=== PATIENT | male | born 1950 | race Caucasian/White ===

== ENCOUNTER → 2021-12-12 | Day surgery (SDC) | payer MEDICARE, OTHER ==
[~2021-12-12] VITALS: Ht 185.4 cm; Wt 77.1 kg
[~2021-12-12] MED LIST: ALOGLIPTIN25 MG PO; AMARYL 2MG TABLE2 MG PO; CARBIDOPA-LEVO1 EAC1 PO; COZAAR100 MG PO; DAILY VALUE1 EACH PO; LIPITOR40 MG PO; LOVAZA1 GM PO; MAG-OXIDE 400M400 MG PO; METFORMIN HCL500 MG PO; NORVASC5 MG PO; ROBINUL FORTE 2M2 MG PO; VITAMIN B-12 IJ; VITAMIN D3125 MC1 PO
[2021-12-12 10:47] LABS: HCT 39.8 % (42.0-52.0); HGB 13.9 g/dl (13.2-18.0); MCH 34.8 pg (25.0-31.0); MCHC 34.9 g/dL (32.0-36.0); MCV 99.7 fL (78.0-100.0); RBC 3.99 M/uL (4.70-6.00); RDW 12.4 % (11.5-14.0)
[2021-12-12 10:59] LABS: ALBUMIN 4.5 g/dL (3.4-5.0); BILIRUBIN - TOTAL 0.9 mg/dL (0.2-1.0); BUN/CREAT RATIO (CALC) 21.4 RATIO; CREATININE 1.12 mg/dL (0.67-1.17); GLOBULIN (CALCULATION) 3.6 g/dL; TOTAL PROTEIN 8.1 g/dL (6.4-8.2)
== END | disposition home or self-care (01) ==
LOC: FAS 09:39
PROVIDERS: Surgery
DX: C90.00 Multiple myeloma not having achieved remission (principal); I11.0 Hypertensive heart disease with heart failure; I50.9 Heart failure, unspecified; I25.10 Atherosclerotic heart disease of native coronary artery without angina pectoris; E11.9 Type 2 diabetes mellitus without complications; G20 Parkinson's disease; E78.00 Pure hypercholesterolemia, unspecified; E78.5 Hyperlipidemia, unspecified; E03.9 Hypothyroidism, unspecified; Z95.0 Presence of cardiac pacemaker; Z79.84 Long term (current) use of oral hypoglycemic drugs; Z79.899 Other long term (current) drug therapy
CPT/HCPCS: 36415; 80053; 82962; J1642; J2250; J2704; J7120